=== PATIENT | male | born 1940 | race Caucasian/White ===

== ENCOUNTER 2022-05-05 08:42 | Day surgery (SDC) | payer MEDICARE ==
[2022-05-05] VITALS (11 sets, daily range): BP systolic 98–171; BP diastolic 62–83; PULSE 49–65; TEMP 98
[~2022-05-05] VITALS: Ht 172.7 cm; Wt 87.9 kg
[2022-05-05 09:48] LABS: HEMATOCRIT 39.9 % (42.0-52.0); HEMOGLOBIN 13.8 g/dl (13.5-18.0); MEAN CELL VOLUME 91 fl (80.0-100.0); MEAN CORPUSCULAR HEMOGLOBIN 31 pg (27-31); MEAN CORPUSCULAR HGB CONC 35 g/dl (33.0-37.0); PLATELET COUNT 314 K/mm3 (130-400)
[2022-05-05] MEDS ORDERED: ZYLOPRIM 300MG300 MG PO (09:49)
[2022-05-05] MEDS ORDERED: NORVASC2.5 MG PO (09:50)
[2022-05-05] MEDS ORDERED: MASON NATURAL2000 IU PO (09:53)
[2022-05-05] MEDS ORDERED: COREG 25MG25 MG/TAB PO (09:53)
[2022-05-05] MEDS ORDERED: ZYRTEC 10MG10 MG PO (09:53)
[2022-05-05] MEDS ORDERED: KLONOPIN 1MG1 MG PO (09:54)
[2022-05-05] MEDS ORDERED: PLAVIX 75MG TAB75 MG PO (09:54)
[2022-05-05 09:55] LABS: INR 1.2 (0.8-3.0); PROTHROMBIN TIME 13.9 SECONDS (9.7-12.8)
[2022-05-05] MEDS ORDERED: LOFIBRA160 MG PO (09:55)
[2022-05-05] MEDS ORDERED: GLUCOPHAGE XR500 M1 PO (09:55)
[2022-05-05] MEDS ORDERED: ALTACE 10MG TAB10 MG PO (09:56)
[2022-05-05 10:11] LABS: CALCIUM 9.2 mg/dL (8.4-10.2); CREATININE, serum 1.05 mg/dL (0.72-1.25)
[2022-05-05] MEDS ORDERED: PRESERVISION1 SGL PO (12:05)
--- NOTE | 2022-05-05 15:42 | NUR ---
Pt has done well during his recovery after MARLENY and loop recorder placement. Loop incision site covered with clean dry and intact dressing.
== END 2022-05-05 15:42 | disposition home or self-care (01) ==
LOC: COL.CAR 08:42
PROVIDERS: Internal Medicine Cardiovascular Disease
DX: I63.9 Cerebral infarction, unspecified (principal); I44.0 Atrioventricular block, first degree; R00.1 Bradycardia, unspecified; I45.10 Unspecified right bundle-branch block
CPT/HCPCS: C1764; J2704

== ENCOUNTER 2022-06-10 09:55 | Day surgery (SDC) | payer MEDICARE ==
[2022-06-10] VITALS (13 sets, daily range): BP systolic 126–166; BP diastolic 50–81; PULSE 57–66; TEMP 60–97.8
[~2022-06-10] VITALS: Ht 172.7 cm; Wt 89.7 kg
[~2022-06-10 09:55] MED LIST: ALTACE 10MG TAB10 MG PO; COREG 25MG25 MG/TAB PO; GLUCOPHAGE XR500 M1 PO; KLONOPIN 1MG1 MG PO; LOFIBRA160 MG PO; MASON NATURAL2000 IU PO; NORVASC2.5 MG PO; PLAVIX 75MG TAB75 MG PO; PRESERVISION1 SGL PO; ZYLOPRIM 300MG300 MG PO; ZYRTEC 10MG10 MG PO
[2022-06-10 11:10] LABS: HEMATOCRIT 38.7 % (42.0-52.0); HEMOGLOBIN 13.1 g/dl (13.5-18.0); MEAN CELL VOLUME 93 fl (80.0-100.0); MEAN CORPUSCULAR HEMOGLOBIN 31 pg (27-31); MEAN CORPUSCULAR HGB CONC 34 g/dl (33.0-37.0); PLATELET COUNT 317 K/mm3 (130-400); RED BLOOD COUNT 4.17 M/mm3 (4.20-5.60); REDCELL DISTRIBUTION WIDTH-CV 13.2 % (11.5-14.5)
[2022-06-10 11:15] LABS: INR 1.3 (0.8-3.0); PROTHROMBIN TIME 14.9 SECONDS (9.7-12.8)
[2022-06-10] MEDS ORDERED: AMOXICILLIN 8751 TAB PO (11:16)
[2022-06-10] MEDS ORDERED: TYLENOL 325MG325 MG PO (11:21)
[2022-06-10] MEDS ORDERED: ASPIRIN E.C. 8181 MG PO (11:24)
[2022-06-10] MEDS ORDERED: MASON NATURAL1200 MG PO (11:25)
[2022-06-10 11:34] LABS: CALCIUM 8.9 mg/dL (8.4-10.2); CREATININE, serum 0.99 mg/dL (0.72-1.25)
--- NOTE | 2022-06-10 12:01 | NUR ---
SEE MERGE FOR VITAL SIGNS, ASSESSMENTS, INTERVENTIONS AND MEDICATIONS GIVEN.
[2022-06-10] MEDS ORDERED: ELIQUIS 5MG PO (12:03)
--- NOTE | 2022-06-10 13:48 | NUR ---
PT BROUGHT FROM SURGERY SCHEDULER , PACEMAKER IMPLATED AND LOOP RECORDER REMOVED, 2 DRESSINGS ON THE THE LEFT UPPER CHEST, DRY AND INTACT, ICE PACK PLACED OVER THE SITE. PT DENIES PAIN.VSS, PT ALERT AND ORIENT X4, WITH TYONEK.
--- NOTE | 2022-06-10 19:01 | NUR ---
pt vss, alert and orient x4, denies complaints of pain due medication given all tolarated.
--- NOTE | 2022-06-10 23:20 | NUR ---
Patient assessed around 1944. Given PRN Acetaminophen at that time as requested to discomfort to left chest, which patient reports was effective. Drssing to loop recorder site removal to left chest and pacemaker site to left chest are CDI. No hematoma to areas noted. Sling to left arm. Given PRN Klonopin as requested for insomnia around 2254. Voices no further questions, needs, or concerns at this time. In bed with call light within reach. Bed alarm on.
[2022-06-11 05:41] VITALS: BP 136/65; PULSE 62; TEMP 98.8
[2022-06-11 05:41] LABS: BASO % 0.4 % (0.0-2.0); EOS # 0.4 K/mm3 (0.0-0.7); EOS % 4.4 % (0.0-4.0); GRAN # 6.3 K/mm3 (1.4-6.5); GRAN % 74.4 % (42.2-75.2); HEMOGLOBIN 12.5 g/dl (13.5-18.0); LYMPH # 0.8 K/mm3 (1.2-3.4); LYMPH % 9.3 % (20.0-51.0); MEAN CELL VOLUME 92 fl (80.0-100.0); MEAN CORPUSCULAR HEMOGLOBIN 32 pg (27-31); MEAN CORPUSCULAR HGB CONC 35 g/dl (33.0-37.0); MEAN PLATELET VOLUME 10.2 fl (7.4-10.4); MONO # 0.9 K/mm3 (0.1-0.6); PLATELET COUNT 304 K/mm3 (130-400); RED BLOOD COUNT 3.89 M/mm3 (4.20-5.60); REDCELL DISTRIBUTION WIDTH-CV 13.3 % (11.5-14.5)
[2022-06-11 05:48] LABS: HEMATOCRIT 35.8 % (42.0-52.0)
--- NOTE | 2022-06-11 05:55 | NUR ---
Patient reports being able to sleep well during the night. Denies needing any more PRN Acetaminophen for discomfort this morning. Voices no questions, needs, or concerns at this time. In bed with call light within reach. Bed alarm on.
[2022-06-11 06:07] LABS: CALCIUM 8.4 mg/dL (8.4-10.2); CREATININE, serum 0.85 mg/dL (0.72-1.25); MAGNESIUM 1.8 mg/dL (1.6-2.6); POTASSIUM 3.7 mmol/L (3.5-4.5)
[2022-06-11 08:14] VITALS: BP 133/73; PULSE 84; TEMP 97.6
--- NOTE | 2022-06-11 08:57 | NUR ---
PT RESTING IN BED, MORNING MEDICATIONS GIVEN. SHIFT ASSESSMENT COMPLETED. PT REPORTS MILD PAIN TO L SHOULDER. L ARM IN SLING. DRESSING TO CHEST AND L UPPER CHEST BOTH C/D/I WITH GUAZE AND PAPER TAPE DRESSINGS. PT DID EAT BREAKFAST OF PANCAKES AND EGGS, FINISHED EATING AT 0800. CARDIOLOGY CONTACTED THIS RN AND I WAS INSTRUCTED TO MAKE PT NPO. PT UPDATED ON POC. WILL CONTINUE TO MONITOR.
[2022-06-11 10:55] LABS: INR 1.3 (0.8-3.0); PROTHROMBIN TIME 14.5 SECONDS (9.7-12.8)
[2022-06-11 12:21] VITALS: BP 147/63; PULSE 101; TEMP 98.2
[2022-06-11] MEDS ORDERED: PACERONE200 MG PO (13:14)
--- NOTE | 2022-06-11 13:19 | NUR ---
[place]: No confucianist preference Situation: retail salesworker stopped by room on rounds Background: Pt was sitting on the side of the bed resting Assessment: Pt has no needs right now. Pt appreciated the visit Recommendation: retail salesworker will follow up as needed
--- NOTE | 2022-06-11 13:49 | NUR ---
DISCHARGE INSTRUCTIONS GIVEN, FAMILY AT BEDSIDE, ALL QUESTIONS ANSWERED. IV D/C. TELE D/C. WILL ESCORT PT DOWN WITH PERSONAL BELONGINGS.
== END 2022-06-11 14:18 | disposition home or self-care (01) ==
LOC: COL.CAR 09:55 → MEDICAL 14:10 → COL.CAR 06-11 14:18
PROVIDERS: Internal Medicine Cardiovascular Disease
DX: I44.1 Atrioventricular block, second degree (principal); R42 Dizziness and giddiness
CPT/HCPCS: OP; C1785; C1894; C1898; J0690; J2250; J3010